=== PATIENT | female | born 1945 | race Caucasian/White ===

== ENCOUNTER 2018-06-18 12:40 | Emergency (ER) | payer MEDICARE, BC ==
[~2018-06-18] VITALS: Ht 157.5 cm; Wt 71.8 kg
[2018-06-18] MEDS ORDERED: CRESTOR40 MG PO (13:31)
[2018-06-18] MEDS ORDERED: ESTRADIOL0.5 MG PO (13:31)
[2018-06-18] MEDS ORDERED: ZITHROMAX500 MG PO (13:32)
[2018-06-18] MEDS ORDERED: AUGMENTIN875TAB PO (13:32)
[2018-06-18 13:40] VITALS: BP 125/69
== END 2018-06-18 13:40 | disposition home or self-care (01) ==
LOC: ED 12:40
DX: J32.9 Chronic sinusitis, unspecified (principal); R05 Cough; R50.9 Fever, unspecified; J44.9 Chronic obstructive pulmonary disease, unspecified

== ENCOUNTER 2022-10-18 09:55 | Day surgery (SDC) | payer MEDICARE, BC ==
[~2022-10-18] VITALS: Ht 157.5 cm; Wt 72.6 kg
[~2022-10-18 09:55] MED LIST: AUGMENTIN875TAB PO; CLARITIN10 M1 PO; CRESTOR40 MG PO; ESTRADIOL0.5 MG PO; LOVASTATIN20 M1 PO; SYNTHROID112 MCG PO; TOPROL XL25 M1 PO; ZITHROMAX500 MG PO
[2022-10-18 11:58] VITALS: BP 144/68
== END 2022-10-18 12:15 | disposition home or self-care (01) ==
LOC: ENDO 09:55
PROVIDERS: ATTEND Internal Medicine Gastroenterology
PROC: 0DJD8ZZ Inspection of Lower Intestinal Tract, Via Natural or Artificial Opening Endoscopic (ICD-10-PCS; principal; 2022-10-18)
DX: Z12.11 Encounter for screening for malignant neoplasm of colon (principal); K64.8 Other hemorrhoids

== ENCOUNTER 2023-05-22 09:23 | Emergency (ER) | payer MEDICARE, BC ==
[~2023-05-22] VITALS: Ht 157.5 cm; Wt 72.0 kg
[2023-05-22 09:30] VITALS: BP 153/100
[2023-05-22] MEDS ORDERED: ACETAMINOPHEN 500 MG TAB PO ONE (10:50)
[2023-05-22] MEDS ORDERED: GUAIFENESIN 600 MG/TAB PO ONE (10:50)
[2023-05-22 11:23] LABS: BASO% 0.1 % (0-3); EOS% 0.3 % (0-8); HEMATOCRIT 38.2 % (37.0-47.0); HEMOGLOBIN 12.3 g/dl (12.0-16.0); IMMATURE GRANULOCYTES 0.2 % (0.0-5.0); LYMPH% 6.4 % (15-41); MEAN CELL VOLUME 92.3 fL CALC (80.0-100.0); MEAN CORPUSCULAR HGB 29.7 pG CALC (26.0-32.0); MEAN CORPUSCULAR HGB CONC 32.2 g/dL CAL (32.0-36.0); MONO% 8.4 % (2-13); NEUT# 7.84 thou/uL (2.00-7.15); NEUT% 84.6 % (42-76); RED BLOOD COUNT 4.14 mill/uL (4.20-5.60); RED CELL DISTRI WIDTH 13.2 % (11.5-15.5)
[2023-05-22 11:59] LABS: PROTHROMBIN TIME 9.8 SECONDS (9.0-12.5)
[2023-05-22 11:59] LABS: ALBUMIN 4.1 g/dL (3.2-5.0); ALKALINE PHOSPHATASE 80 u/l (38-126); ANION GAP 10 (6-22 (CALC)); BILIRUBIN, TOTAL 0.4 mg/dL (0.02-1.3); BUN 15 mg/dL (8-23); BUN/CREATININE RATIO 21 (12-20 (CALC)); CARBON DIOXIDE 26 mmol/l (22-30); CHLORIDE 107 mmol/l (95-108); CREATININE 0.7 mg/dL (0.5-1.0); GFR FOR AFR.AMER. > 60 ML/MIN (>=60 (CALC)); GFR OTHER RACES > 60 ML/MIN (>=60 (CALC)); POTASSIUM 3.8 mmol/l (3.5-5.1); SGOT/AST 26 u/l (9-36); SODIUM 139 mmol/l (137-146); TOTAL PROTEIN 7.1 g/dL (6.3-8.2)
[2023-05-22 12:21] LABS: D-DIMER 0.74 mg/L (0.19-0.60)
[2023-05-22] MEDS ORDERED: PAXLOVID PO (14:52)
[2023-05-22 15:00] VITALS: BP 154/74
== END 2023-05-22 15:05 | disposition home or self-care (01) ==
LOC: ED 09:23
PROVIDERS: Emergency Medicine
DX: U07.1 COVID-19 (principal); R06.02 Shortness of breath; R52 Pain, unspecified; R50.9 Fever, unspecified; R05.9 Cough, unspecified; J44.9 Chronic obstructive pulmonary disease, unspecified; I10 Essential (primary) hypertension; E78.00 Pure hypercholesterolemia, unspecified